=== PATIENT | male | born 1970 | race Hispanic/Latino ===

== ENCOUNTER 2020-04-09 15:41 | Emergency (ER) | payer BC ==
[~2020-04-09] VITALS: Ht 185.4 cm; Wt 124.7 kg
[~2020-04-09 15:41] MED LIST: DESYREL100 MG PO; Z.0.CELEXA40 MG PO; Z.0.VICODIN 5-5001 E PO; Z.0.XANAX1 MG PO
[2020-04-09] MEDS ORDERED: HYDROCODONE/APAP 10MG-325MG TAB PO ONE (16:15)
[2020-04-09] MEDS ORDERED: IBUPROFEN 600 MG TAB PO NR (19:00)
[2020-04-09 19:48] VITALS: BP 160/99
[2020-04-12] MEDS ORDERED: VALPROIC A250 MG/5 M PO (10:41)
[2020-04-12] MEDS ORDERED: ZEBETA10 MG PO (10:42)
[2020-04-12] MEDS ORDERED: TYLENOL # 31 EA PO (10:42)
[2020-04-12] MEDS ORDERED: AMLODIPINE BESY10 MG PO (10:42)
== END 2020-04-09 20:07 | disposition home or self-care (01) ==
LOC: ER 16:45
DX: S52.502A Unspecified fracture of the lower end of left radius, initial encounter for closed fracture (principal); S20.212A Contusion of left front wall of thorax, initial encounter; W10.8XXA Fall (on) (from) other stairs and steps, initial encounter; Y93.01 Activity, walking, marching and hiking; Y92.008 Other place in unspecified non-institutional (private) residence as the place of occurrence of the external cause; F41.9 Anxiety disorder, unspecified
CPT/HCPCS: 71101; 99283

== ENCOUNTER → 2020-04-16 | Day surgery (SDC) | payer BC ==
[~2020-04-16] MED LIST changes: +AMLODIPINE BESY10 MG PO; +CEFAZOLIN SOD 1 GM/NS 50ML 100 ML IV ONE; +EPHEDRINE SULFATE INJ 50 MG/ML VIAL ONE; +FENTANYL CITRATE/PF 100MCG/2 ML INJ ONE; +LIDOCAINE HCL 2% LOCAL INJ 5 ML SDV VIAL INJ ONE; +MIDAZOLAM HCL 2 MG/2 ML VIAL ONE; +ONDANSETRON HCL INJ 2MG/ML 2ML 2 MG/ML VIAL ONE; +PROPOFOL IV EMULSION 10 MG/ML 20 ML VIAL ONE; +ROPIVACAINE 0.5% 5 MG/ML 30 ML SDV ONE; +SEVOFLURANE INHAL SOLN 250 ML PEN BTL ONE; +TYLENOL # 31 EA PO; +VALPROIC A250 MG/5 M PO; +ZEBETA10 MG PO
--- NOTE | 2020-04-16 09:49 | Operative Report ---
DATE OF PROCEDURE: 04/16/2020 SURGEON: Oli Spears MD HANDLE MACHINE OPERATOR: Hector Bangura PA-C. PREOPERATIVE DIAGNOSIS: Comminuted intra-articular left distal radius fracture. POSTOPERATIVE DIAGNOSIS: Comminuted intra-articular left distal radius fracture. PROCEDURE: Open reduction and internal fixation of left distal radius. INDICATIONS: The patient is a 49-year-old gentleman who sustained a severe fracture of his left distal radius. The findings and options have been discussed. We plan on an open reduction with internal fixation. The risks and benefits were explained. Realistic expectations due to the articular damage was discussed. He states he understands and wishes to proceed. PROCEDURE IN DETAIL: The patient was brought to the operating room and placed under general anesthetic. His left upper extremity was prepped and draped in a sterile manner. A preoperative time-out was performed. The extremity was exsanguinated and a proximal tourniquet was inflated to 250 mmHg. An incision was made over the radial side of the distal left forearm. The flexor carpi radialis tendon was identified. The tendon sheath was incised and the dissection was carried out through the floor of the flexor carpi radialis tendon sheath. The volar surface of the distal radius was carefully exposed. The distal fracture site was carefully exposed. The C-arm image intensifier was used to assist in obtaining an improved reduction. A bone pick from the set was used to reduce the articular surface. A [employer] volar locking plate was then placed over the distal radius. Once again, C-arm image intensifier was used to assist in proper positioning. This was ultimately locked with a combination of compression and locking screws. Intraoperative x-rays showed dramatic improvement in the articular reduction and amish of the radial length. There was good positioning of the hardware. The wound was thoroughly irrigated. The muscle was reapproximated over the volar aspect of the distal radius. The skin was closed with subcuticular Vicryl and nylon stitches. A sterile bandage was applied. He was placed into a sugar-tong splint. He was extubated and transported to the recovery room in stable condition. There was no blood loss and all needle and sponge counts were correct. Oli Spears MD DR/ZACARIAS /[id number]
[2020-04-16 10:15] VITALS: BP 144/99
== END | disposition home or self-care (01) ==
LOC: OR 05:58
PROVIDERS: ATTEND Specialist
DX: S52.562A Barton's fracture of left radius, initial encounter for closed fracture (principal); S22.32XA Fracture of one rib, left side, initial encounter for closed fracture; S53.492A Other sprain of left elbow, initial encounter; S40.812A Abrasion of left upper arm, initial encounter; G47.33 Obstructive sleep apnea (adult) (pediatric); I10 Essential (primary) hypertension; Z87.891 Personal history of nicotine dependence; Z01.810 Encounter for preprocedural cardiovascular examination; Z01.812 Encounter for preprocedural laboratory examination; Z20.828 Contact with and (suspected) exposure to other viral communicable diseases
CPT/HCPCS: 25608; 93005; C1713 ×5; J0690; J2001; J2250; J2405; J2704; J2795; J3010; U0002; 76000

== ENCOUNTER → 2020-08-22 | Outpatient (RCR) | payer BC, OTHER ==
[~2020-08-22] MED LIST changes: -CEFAZOLIN SOD 1 GM/NS 50ML 100 ML IV ONE; -EPHEDRINE SULFATE INJ 50 MG/ML VIAL ONE; -FENTANYL CITRATE/PF 100MCG/2 ML INJ ONE; -LIDOCAINE HCL 2% LOCAL INJ 5 ML SDV VIAL INJ ONE; -MIDAZOLAM HCL 2 MG/2 ML VIAL ONE; -ONDANSETRON HCL INJ 2MG/ML 2ML 2 MG/ML VIAL ONE; -PROPOFOL IV EMULSION 10 MG/ML 20 ML VIAL ONE; -ROPIVACAINE 0.5% 5 MG/ML 30 ML SDV ONE; -SEVOFLURANE INHAL SOLN 250 ML PEN BTL ONE
== END ==
LOC: EEVIPCON → OT 08-08 08:52
PROVIDERS: ATTEND Physician Assistant
DX: S52.562D Barton's fracture of left radius, subsequent encounter for closed fracture with routine healing (principal)

== ENCOUNTER 2020-09-20 13:58 | Outpatient (RCR) | payer OTHER | END 2020-09-21 | LOC: OT 13:58 | PROVIDERS: ATTEND Physician Assistant | DX: S52.562D Barton's fracture of left radius, subsequent encounter for closed fracture with routine healing (principal) ==

== ENCOUNTER 2024-01-25 15:14 | Emergency (ER) | payer BC, OTHER ==
[~2024-01-25] VITALS: Ht 182.9 cm; Wt 140.6 kg
[2024-01-25] MEDS: KETOROLAC TROMETHAMINE 30 MG/ML VIAL IV STA (16:56)
[2024-01-25] MEDS: SODIUM CHLORIDE 0.9% 1000ML 1,000 ML IV STA (16:56)
[2024-01-25] MEDS: FAMOTIDINE 20 MG/2 ML VIAL IV STA (16:57)
[2024-01-25] MEDS ORDERED: IOPAMIDOL 370 MG/ML 100 ML INFUS..BTL INJ ONE (17:32)
[2024-01-25 19:01] VITALS: PULSE 65; RESP 18; TEMP 98.6; O2SAT 94
== END 2024-01-25 19:35 | disposition home or self-care (01) ==
LOC: FSED 15:24
DX: R10.12 Left upper quadrant pain (principal); I10 Essential (primary) hypertension; K76.0 Fatty (change of) liver, not elsewhere classified; F32.A Depression, unspecified; F41.9 Anxiety disorder, unspecified; E66.9 Obesity, unspecified
CPT/HCPCS: 74177; 80048; 80076; 81003; 85025; 96374; 96375; 99284; J1885; J7030; Q9967

== ENCOUNTER 2024-05-06 12:34 | Emergency (ER) | payer BC ==
[~2024-05-06] VITALS: Ht 182.9 cm; Wt 143.8 kg
[2024-05-06 12:41] VITALS: PULSE 81; RESP 20; TEMP 98.5; O2SAT 98
[2024-05-06] MEDS ORDERED: MELOXICAM15 MG PO (13:22)
[2024-05-06] MEDS ORDERED: METHOCARBAMOL750 MG PO (13:23)
[2024-05-06] MEDS: KETOROLAC TROMETHAMINE 30 MG/ML VIAL IM STA (13:43)
[2024-05-06] MEDS: METHOCARBAMOL 500 MG TAB PO ONE (13:44)
== END 2024-05-06 14:00 | disposition home or self-care (01) ==
LOC: FSED 12:39
DX: M54.2 Cervicalgia (principal); R51.9 Headache, unspecified; V43.52XA Car driver injured in collision with other type car in traffic accident, initial encounter; Y92.488 Other paved roadways as the place of occurrence of the external cause; I10 Essential (primary) hypertension; F41.9 Anxiety disorder, unspecified; E66.9 Obesity, unspecified
CPT/HCPCS: 99282; J1885